=== PATIENT | female | born 1970 | race Caucasian/White ===

== ENCOUNTER 2017-10-30 12:49 | Emergency (ER) | payer BC ==
[~2017-10-30] VITALS: Ht 167.6 cm; Wt 95.2 kg
--- NOTE | 2017-10-30 21:38 | EKG ---
[facility] [place] [facility] [address] [facility] [place], [place] [address] Signed Normal sinus rhythm with sinus arrhythmia Normal ECG No previous ECGs available Confirmed by LYNDSAY CHERRY MD ([id number]) on 10/30/2017 9:38:21 PM Electronically Signed By: LYNDSAY CHERRY MD 10/30/17 2138 PATIENT NAME: SHELBY FLETCHER Electrocardiogram DATE OF : 68 PHYSICIAN: LYNDSAY CHERRY MD REPORT #: [id number] REPORT IS CONFIDENTIAL AND NOT TO BE RELEASED WITHOUT AUTHORIZATION
== END 2017-10-30 14:45 | disposition home or self-care (01) ==
LOC: ED 12:49
DX: R00.2 Palpitations (principal)
CPT/HCPCS: 0296T; 0297T; 0298T; 71046; 80053; 84443; 84484; 85025; 93005; 93010; 99285

== ENCOUNTER 2022-12-24 15:53 | Emergency (ER) | payer BC ==
[~2022-12-24] VITALS: Ht 167.6 cm; Wt 104.3 kg
[2022-12-24] MEDS ORDERED: HYDROCODON-ACE1 EA10 PO (20:01)
[2022-12-24] MEDS ORDERED: TRAMADOL HCL50 MG PO (20:33)
[2022-12-24 21:13] VITALS: BP 156/79
== END 2022-12-24 21:13 | disposition home or self-care (01) ==
LOC: ED 15:53
DX: S83.241A Other tear of medial meniscus, current injury, right knee, initial encounter (principal); M71.21 Synovial cyst of popliteal space [Baker], right knee; X50.1XXA Overexertion from prolonged static or awkward postures, initial encounter
CPT/HCPCS: 73560; 73700; A9270; J1885; J3360

== ENCOUNTER 2024-01-27 06:44 | Day surgery (SDC) | payer BC ==
[~2024-01-27] VITALS: Ht 167.6 cm; Wt 109.0 kg
[~2024-01-27 06:44] MED LIST: HYDROCODON-ACE1 EA10 PO; MIDAZOLAM HCL 5 MG/5 ML VIAL IV PRN; TRAMADOL HCL50 MG PO; fentaNYL citrate 100 MCG/2 ML VIAL IV PRN
[2024-01-27] MEDS ORDERED: LACTATED RINGER'S 1,000 ML IV SCH (07:00)
[2024-01-27] MEDS ORDERED: IBLOOD GLUCOSE TEST STRIP 1 EA TEST VI PRN (07:00)
[2024-01-27] MEDS ORDERED: LIDOCAINE HCL 1% 5 ML SDV INJ ONE (07:00)
[2024-01-27 07:06] VITALS: BP 124/62
--- NOTE | 2024-01-27 07:43 | NUR ---
VISITED DURING SPIRITUAL CARE ROUNDS. PT IN OVERALL GOOD SPIRITS, NO SIGNS OF ANXIETY. ADMISSIONS EVALUATOR PROVIDED SUPPORTIVE PRESENCE, HOSPITALITY, PRAYER, FACILITATED INTERACTION WITH THERAPY ANIMAL. PT EXPRESSED GRATITUDE.
[2024-01-27] MEDS ORDERED: MIDAZOLAM HCL 5 MG/5 ML VIAL ONE (08:01)
[2024-01-27] MEDS ORDERED: fentaNYL citrate 100 MCG/2 ML VIAL ONE (08:01)
--- NOTE | 2024-01-27 08:51 | NUR ---
01/27/24 0851 Karime Suazo 0847-PT TO PACU IN SF POSITION. EYES CLOSED. PT RESPONDS TO VERBAL AND TACTILE SIMULI AND FALLS QUICKLY BACK TO SLEEP. BREATHING EASY AND UNLABORED. SPO2 >95% ON 3 L O2 VIA NC. PT UPDATED ON THE POC FOR PACU. 0851- PT RESTING EYES CLOSED. BREATHING EASY AND UNLABORED. SPO2 >95% ON 3 L O2 VIA NC. PT AWAKENS TO VERBAL STIMULI.
[2024-01-27 09:33] VITALS: BP 114/81
--- NOTE | 2024-01-27 10:47 | OR ---
[facility] [address] [place], [place] [address] Signed DATE OF OPERATION: 01/27/2024 SURGEON: Perla Akers MD PREOPERATIVE DIAGNOSES: 1. Cologuard positive. 2. Chronic constipation, improved with vegan diet. POSTOPERATIVE DIAGNOSES: 1. Long redundant colon. 2. Minimal internal hemorrhoids. 3. Minimal internal anal skin tags. 4. 4 mm polyp at 25 cm in sigmoid colon. 5. 4 mm polyp at 20 cm in sigmoid colon. 6. 4 mm polyp at 18 cm in sigmoid colon. 7. 4 mm polyp at 15 cm in sigmoid colon. 8. 3 mm polyps x3 at 8 cm in rectum. PROCEDURE: Colonoscopy with hot biopsies. ESTIMATED BLOOD LOSS: None. INDICATIONS: Shelby is a 53-year-old obese female, who underwent her first colonoscopy back in 2005 at the age of 32. She was living in [place], [place]. She was having diet associated constipation. She now follows a vegan diet and says her bowel movements are markedly improved. She gives no family history of colon cancer or polyps. Her recent Cologuard test came back positive. She was asked to see me with respect to the above. She feels like she has no lower GI complaints. In the office I had given her a pamphlet on colonoscopy. We had reviewed the nature of the test. There is risk including, but not limited to gas bloating, crampy abdominal pain, bleeding, perforation requiring surgery, and missed diagnosis. We also reviewed the written instructions for bowel prep line by line. She currently takes no medications. She understands the need for IV conscious sedation. She understands that an adult person has to take her home afterwards. She had expressed understanding and wished to proceed. PROCEDURE IN DETAIL: Shelby was taken into our endoscopy suite and placed in the left lateral decubitus Electronically Signed By: PERLA AKERS MD 01/27/24 1047 PATIENT NAME: SHELBY FLETCHER OPERATIVE REPORT DATE OF : 68 REPORT #: [id number] PHYSICIAN: PERLA AKERS MD PCP: YANELI BARRAGAN PA-C REPORT IS CONFIDENTIAL AND NOT TO BE RELEASED WITHOUT AUTHORIZATION [facility] [address] [place], [place] [address] Signed position. She was given a total of 150 mcg of fentanyl and 8 mg of Versed. She was either awake, moving in pain or she was out and requiring constant airway management. She does have a very full round heavy face and mandible along with a large tongue and a very full neck, chest and abdomen. It is clear she would be much better served in much safer with monitored anesthesia care and propofol infusion in the future. A digital rectal exam was performed. Really no external hemorrhoids. She had good sphincter tone. There were no masses. The adult colonoscope was then introduced and advanced under direct visualization of the camera. We started to encounter stool in a progressively increasing fashion as we made our way up the colon. We found that she has a somewhat long redundant colon. We finally made it around to what looks like the ileocecal valve in the cecum. It was also confirmed by palpation. There was so much stool in that area that we were not able to make much of the mucosa. The scope was then slowly withdrawn. The rest of the colon was not particularly difficult with respect to stool. There were several areas where the stool simply was too thick, I could not suction it out. We did not see any diverticula. We did remove the above-mentioned polyps with the help of hot biopsy forceps. Once in the rectum, the scope had been retroflexed and she does have minimal internal hemorrhoid tissue and several tiny internal anal skin tags. It looks like she has a previous biopsy scar at around 6-7 cm in the rectum from when she was younger at age 32. After this, the gas was suctioned out, colonoscope removed. Overall, Shelby tolerated the procedure well. RECOMMENDATIONS: I will see Shelby back in my office in 7 to 14 days to review her results. She will need to go to a full gallon of polyethylene glycol with Dulcolax tablets in the future. She should use monitored anesthesia care with propofol infusion. She might consider a short interval colonoscopy because of the bowel prep, particularly in the area of the cecum. Perla Akers MD ALB/MODL /[id number] cc: MD Yaneli Ag PA-C Electronically Signed By: PERLA AKERS MD 01/27/24 1047 PATIENT NAME: SHELBY FLETCHER OPERATIVE REPORT DATE OF : 68 REPORT #: [id number] PHYSICIAN: PERLA AKERS MD PCP: YANELI BARRAGAN PA-C REPORT IS CONFIDENTIAL AND NOT TO BE RELEASED WITHOUT AUTHORIZATION [address] [place], [place] [address] Signed Copies: PERLA AKERS MD, CHLOE K PA-C ~ Electronically Signed By: PERLA AKERS MD 01/27/24 1047 PATIENT NAME: SHELBY FLETCHER OPERATIVE REPORT DATE OF : 68 REPORT #: [id number] PHYSICIAN: PERLA AKERS MD PCP: YANELI BARRAGAN PA-C REPORT IS CONFIDENTIAL AND NOT TO BE RELEASED WITHOUT AUTHORIZATION
--- NOTE | 2024-01-28 11:38 | PATH ---
[facility] [address] [facility] [place], [place] [address] Signed SPECIMEN(S): A COLON POLYP AT 25 CM SPECIMEN(S): B SIGMOID POLYP AT 20 CM SPECIMEN(S): C SIGMOID POLYP AT 18 CM SPECIMEN(S): D SIGMOID POLYP AT 15 CM SPECIMEN(S): E RECTAL POLYP AT 8 CM SPECIMEN SOURCE: A. COLON POLYP AT 25 CM B. SIGMOID POLYP AT 20 CM C. SIGMOID POLYP AT 18 CM D. SIGMOID POLYP AT 15 CM E. RECTAL POLYP AT 8 CM CLINICAL HISTORY: Guaiac positive stool/colon polyps, long redundant colon, I/H with skin tags FINAL PATHOLOGIC DIAGNOSIS: A. Colon, 25 cm, polypectomy: - Colonic mucosa with no significant pathologic changes B. Colon, sigmoid at 20 cm, polypectomy: - Hyperplastic polyp C. Colon, sigmoid at 18 cm, polypectomy: - Hyperplastic polyp D. Colon, sigmoid at 15 cm, polypectomy: - Hyperplastic polyp E. Rectum, 8 cm, polypectomy: - Hyperplastic polyp BRP MICROSCOPIC EXAMINATION: Histologic sections of all submitted blocks are examined by light microscopy. These findings, together with the gross examination, support the pathologic diagnosis. GROSS DESCRIPTION: A. The specimen, labeled and designated "Fletcher, colon polyp at 25 cm," is received in formalin and consists of two marshall soft tissue fragments, ranging from 0.2-0.3 cm. Entirely submitted in (A1). B. The specimen, labeled and designated "Fletcher, sigmoid polyp at 20 cm," is received in formalin and consists of one marshall soft tissue fragment, 0.2 cm. Entirely submitted in (B1). PATIENT NAME: SHELBY FLETCHER PATHOLOGY DATE OF : 68 REPORT #: [id number] PHYSICIAN: VIV LOPEZ PCP: JESÚS BARRAGAN PA-C REPORT IS CONFIDENTIAL AND NOT TO BE RELEASED WITHOUT AUTHORIZATION [facility] [address] [place], [place] [address] Signed C. The specimen, labeled and designated "Medhat, sigmoid polyp at 18 cm," is received in formalin and consists of one marshall soft tissue fragment, 0.3 cm. Entirely submitted in (C1). D. The specimen, labeled and designated "Fletcher, sigmoid polyp at 15 cm," is received in formalin and consists of one marshall soft tissue fragment, 0.4 cm. Entirely submitted in (D1). E. The specimen, labeled and designated "Medhat, rectal polyp at 8 cm," is received in formalin and consists of three marshall soft tissue fragments, ranging from 0.2-0.6 cm. Entirely submitted in (E1). VB (under the direct supervision of a pathologist) The Gross Description was prepared using a voice recognition system. The report was reviewed for accuracy; however, sound-alike word errors, addition and/or deletions may occur. If there is any question about this report, please contact Client Services. ADDITIONAL NOTES: Immunohistochemical and/or in situ hybridization studies if performed in this case included appropriate positive controls that reacted as expected. This test was developed and its performance characteristics determined by [facility]. It has not been cleared or approved by the U.S. Food and Drug Administration. The FDA has determined that such clearance or approval is not necessary. This test is used for clinical purposes. It should not be regarded as investigational or for research. [facility] is certified under the Clinical Laboratory Improvement Amendments of 1988 (CLIA) as qualified to perform high complexity clinical laboratory testing. PERFORMING LABORATORY: Technical component was performed by [facility], [address] [place] [id number] (CLIA# [id number]). Professional interpretation was performed by [facility] - [facility], [address] [place] [id number] (CLIA#: [id number]). Diagnostician: Zan Patel MD Pathologist Electronically Signed 01/28/2024 Copies: PATIENT NAME: SHELBY FLETCHER PATHOLOGY DATE OF : 68 REPORT #: [id number] PHYSICIAN: VIV LOPEZ PCP: JESÚS BARRAGAN PA-C REPORT IS CONFIDENTIAL AND NOT TO BE RELEASED WITHOUT AUTHORIZATION [address] [place], [place] [address] Signed ~ PATIENT NAME: SHELBY FLETCHER PATHOLOGY DATE OF : 68 REPORT #: [id number] PHYSICIAN: VIV LOPEZ PCP: JESÚS BARRAGAN PA-C REPORT IS CONFIDENTIAL AND NOT TO BE RELEASED WITHOUT AUTHORIZATION
== END 2024-01-27 09:47 | disposition home or self-care (01) ==
LOC: DS 06:44 → DSVR 06:45 → DS 08:30
PROVIDERS: ATTEND Colon & Rectal Surgery
PROC: 0DBN8ZZ Excision of Sigmoid Colon, Via Natural or Artificial Opening Endoscopic (ICD-10-PCS; 2024-01-27)
PROC: 0DBP8ZZ Excision of Rectum, Via Natural or Artificial Opening Endoscopic (ICD-10-PCS; principal; 2024-01-27 08:30)
DX: Z12.11 Encounter for screening for malignant neoplasm of colon (principal); K63.5 Polyp of colon; K62.1 Rectal polyp; K64.8 Other hemorrhoids; K64.4 Residual hemorrhoidal skin tags; K63.89 Other specified diseases of intestine; K21.9 Gastro-esophageal reflux disease without esophagitis; E78.00 Pure hypercholesterolemia, unspecified; F17.210 Nicotine dependence, cigarettes, uncomplicated; E66.9 Obesity, unspecified; Z68.38 Body mass index [BMI] 38.0-38.9, adult; Z88.5 Allergy status to narcotic agent; Z88.6 Allergy status to analgesic agent; Z90.49 Acquired absence of other specified parts of digestive tract; Z90.710 Acquired absence of both cervix and uterus
CPT/HCPCS: 99153; G0500; J2250; J3010; J7121

== ENCOUNTER 2024-12-05 16:47 | Emergency (ER) | payer BC ==
[~2024-12-05] VITALS: Ht 167.6 cm; Wt 80.0 kg
[~2024-12-05 16:47] MED LIST changes: -MIDAZOLAM HCL 5 MG/5 ML VIAL IV PRN; -fentaNYL citrate 100 MCG/2 ML VIAL IV PRN
[2024-12-05 17:07] LABS: BLOOD/HGB, URINE LARGE (Negative); KETONE, URINE NEGATIVE (Negative); LEUK ESTERASE, URINE LARGE (negative); NITRITE, URINE NEGATIVE (negative)
[2024-12-05 17:13] LABS: BACTERIA, URINE 2+ /hpf (negative); CASTS, URINE NONE SEEN \\lpf; CRYSTALS, URINE NONE SEEN (0-1+); EPITHELIAL CELLS, URINE SQUAMOUS 1+ /lpf (0-1+); REFLEX CULTURE, URINE Yes (No)
[2024-12-05] MEDS ORDERED: CEPHALEXIN500 M1 PO (17:39)
[2024-12-05] MEDS ORDERED: ONDANSETRON 4 MG TAB ODT SL ONE (17:45)
[2024-12-05] MEDS ORDERED: CEPHALEXIN MONOHYDRATE 500 MG HOME.PACK PO ONE (17:45)
[2024-12-05 17:49] VITALS: BP 129/85
== END 2024-12-05 17:50 | disposition home or self-care (01) ==
LOC: ED 16:47
PROVIDERS: Emergency Medicine
DX: N39.0 Urinary tract infection, site not specified (principal); Z88.5 Allergy status to narcotic agent
CPT/HCPCS: 81001; 87088; 99283; A9270